=== PATIENT | male | born 1995 | race Caucasian/White ===

== ENCOUNTER 2018-02-03 21:38 | Emergency (ER) | payer MEDICAID, OTHER ==
[~2018-02-03] VITALS: Ht 172.7 cm; Wt 95.5 kg
[~2018-02-03 21:38] MED LIST: ACET-2615 PO; LEVO500T2 PO; NO HOME MEDS
[2018-02-03 21:46] VITALS: BP 130/85
[2018-02-03] MEDS ORDERED: dexamethasone sod phosphate 10mg/ml inj IM STA (23:39)
[2018-02-03] MEDS ORDERED: HYDROcodone/acetaminophen 10/325mg tab PO ONE (23:40)
[2018-02-03] MEDS ORDERED: orphenadrine citrate 60mg/2ml inj. IM ONE (23:40)
[2018-02-03] MEDS ORDERED: ketorolac trometh inj. 60 MG/2 ML VIAL IM ONE (23:40)
[2018-02-03] MEDS ORDERED: NAPR-56 PO (23:46)
[2018-02-03] MEDS ORDERED: CYCL-1 PO (23:46)
== END 2018-02-03 23:58 | disposition home or self-care (01) ==
LOC: ER 21:39
DX: G89.29 Other chronic pain (principal); M54.42 Lumbago with sciatica, left side; M62.838 Other muscle spasm
CPT/HCPCS: 96372; 99284; J1100; J1885; J2360

== ENCOUNTER 2019-03-10 12:43 | Emergency (ER) | payer BC, MEDICAID, OTHER ==
[~2019-03-10] VITALS: Ht 172.7 cm; Wt 90.9 kg
[~2019-03-10 12:43] MED LIST changes: +CYCL-1 PO
--- NOTE | 2019-03-10 13:09 | NUR ---
PT REPORTS ABD PAIN THAT STARTED AT 5 AM PROGRESSIVELY GETTING WORSE AND THEN STARTED VOMITING. NO HX.
[2019-03-10] MEDS ORDERED: ondansetron/PF 4mg/2ml inj IV ONE (13:40)
[2019-03-10] MEDS ORDERED: pantoprazole 40 MG vial IV ONE (13:40)
[2019-03-10] MEDS ORDERED: normal saline 1000ML IV soln IVB ONE ×2 (13:40)
[2019-03-10 14:11] LABS: BASOPHILS # (AUTO) 0.1 X10'3 (0-0.2); BASOPHILS % (AUTO) 0.8 % (0-1); EOSINOPHILS # (AUTO) 0.2 X10'3 (0-0.9); EOSINOPHILS % (AUTO) 2.7 % (0-6); HEMOGLOBIN 15.6 g/dl (14.0-17.9); LYMPHOCYTES # (AUTO) 1.8 X10'3 (1.1-4.8); MEAN CORPUSCULAR HGB CONC 33.9 g/dL (33.0-36.5); MEAN CORPUSCULAR VOLUME 91.5 FL (78-98); MEAN PLATELET VOLUME 8.7 FL (7.4-10.4); MONOCYTES # (AUTO) 0.5 X10'3 (0-0.9); MONOCYTES % (AUTO) 7.3 % (2-12); NEUTROPHILS # (AUTO) 4.1 X10'3 (1.8-7.7); NEUTROPHILS % (AUTO) 62.2 % (42-75); PLATELET COUNT 247 X10'3 (140-440); RED BLOOD COUNT 5.03 X10'6 (4.70-6.10); RED CELL DISTRIBUTION WIDTH 13.9 % (11.5-14.5); WHITE BLOOD COUNT 6.5 X10'3 (4.5-11.0)
[2019-03-10 14:24] LABS: ALANINE AMINOTRANSFERASE 38 U/L (12-78); ALBUMIN 3.8 G/DL (3.4-5.0); ALKALINE PHOSPHATASE 60 IU/L (46-116); ANION GAP 9 (8-16); ASPARTATE AMINO TRANSFERASE 22 U/L (10-37); BILIRUBIN,TOTAL 0.3 MG/DL (0.1-1.0); BLOOD UREA NITROGEN 16 MG/DL (7-18); BUN/CREATININE RATIO 17.6 (5.4-32.0); CALCIUM 8.8 MG/DL (8.5-10.1); CHLORIDE 108 MMOL/L (99-107); CREATININE 0.91 MG/DL (0.60-1.10); GLUCOSE 103 MG/DL (70-104); LIPASE 110 U/L (73-393); POTASSIUM 4.3 MMOL/L (3.5-5.1); SODIUM 143 MMOL/L (135-145); TOTAL CARBON DIOXIDE 26.4 MMOL/L (24-32); TOTAL PROTEIN 7.5 G/DL (6.4-8.2); eGFR > 90 ML/MIN
[2019-03-10] MEDS ORDERED: HYDROcodone/acetaminophen 10/325mg tab PO ONE (14:35)
[2019-03-10] MEDS ORDERED: PANT-47 PO (15:01)
[2019-03-10] MEDS ORDERED: ONDA8TAB13 PO (15:01)
[2019-03-10 15:02] VITALS: BP 130/72
== END 2019-03-10 15:08 | disposition home or self-care (01) ==
LOC: ER 12:44
DX: R11.11 Vomiting without nausea (principal); R10.12 Left upper quadrant pain; R10.13 Epigastric pain; E86.0 Dehydration; G89.29 Other chronic pain; F17.200 Nicotine dependence, unspecified, uncomplicated; Z90.49 Acquired absence of other specified parts of digestive tract
CPT/HCPCS: 36415; 74018; 80053; 83690; 85025; 96361; 96374; 96375; 99284; C9113; J2405; J7030; J7040

== ENCOUNTER 2022-08-08 20:19 | Emergency (ER) | payer BC ==
[~2022-08-08] VITALS: Ht 175.3 cm; Wt 106.8 kg
[~2022-08-08 20:19] MED LIST changes: -ACET-2615 PO; -CYCL-1 PO; -LEVO500T2 PO; +ONDA8TAB13 PO; +PANT-47 PO
[2022-08-08] MEDS ORDERED: tobramycin/dexamethasone ophthalmic suspension EACHEYE ONE (20:25)
[2022-08-08 20:30] VITALS: BP 158/103
== END 2022-08-08 21:10 | disposition home or self-care (01) ==
LOC: ER 20:20
DX: H10.9 Unspecified conjunctivitis (principal); J06.9 Acute upper respiratory infection, unspecified; Z20.822 Contact with and (suspected) exposure to COVID-19; G89.29 Other chronic pain; Z90.49 Acquired absence of other specified parts of digestive tract; Z79.899 Other long term (current) drug therapy
CPT/HCPCS: 87811; 99283

== ENCOUNTER 2022-12-27 02:55 | Emergency (ER) | payer BC ==
[~2022-12-27] VITALS: Ht 175.3 cm; Wt 105.0 kg
[2022-12-27 02:57] VITALS: BP 174/103
[2022-12-27] MEDS ORDERED: ondansetron 4mg rapidly disintigrating tab PO ONE (04:00)
[2022-12-27] MEDS ORDERED: LIDOcaine 1% W/epiNEPHrine 1:100,000 20ml vial IJ ONE (04:00)
[2022-12-27] MEDS ORDERED: amoxicillin 250mg capsule PO ONE (04:00)
[2022-12-27] MEDS ORDERED: LIDOcaine 1% W/epiNEPHrine 1:200,000 10ml vial IJ ONE (04:00)
[2022-12-27] MEDS ORDERED: HYDR-3965 PO (04:03)
[2022-12-27] MEDS ORDERED: AMOX500C2 PO (04:03)
== END 2022-12-27 04:21 | disposition home or self-care (01) ==
LOC: ER 02:55
DX: K08.89 Other specified disorders of teeth and supporting structures (principal); G89.29 Other chronic pain; Z90.49 Acquired absence of other specified parts of digestive tract; Z79.899 Other long term (current) drug therapy
CPT/HCPCS: 64400; 99284

== ENCOUNTER 2023-06-23 22:38 | Emergency (ER) | payer BC ==
[~2023-06-23] VITALS: Ht 172.7 cm; Wt 109.1 kg
[~2023-06-23 22:38] MED LIST changes: +VANCOMYCIN 750MG IV in NS 250 ML IV ONE
[2023-06-23] MEDS ORDERED: acetaminophen 325mg tablet PO STA (22:41)
[2023-06-23] MEDS ORDERED: normal saline 1000ML IV soln IV ONE (22:45)
[2023-06-23 23:10] LABS: BASOPHILS % (AUTO) 0.4 % (0-1); EOSINOPHILS # (AUTO) 0.1 X10'3 (0-0.9); HEMATOCRIT 44.9 % (42.0-52.0); LYMPHOCYTES # (AUTO) 1.6 X10'3 (1.1-4.8); LYMPHOCYTES % (AUTO) 16.5 % (21-51); MEAN CORPUSCULAR HEMOGLOBIN 30.4 PG (27.0-31.0); MEAN CORPUSCULAR HGB CONC 33.4 g/dL (33.0-36.5); MEAN CORPUSCULAR VOLUME 90.9 FL (78-98); MEAN PLATELET VOLUME 8.6 FL (7.4-10.4); MONOCYTES # (AUTO) 0.7 X10'3 (0-0.9); MONOCYTES % (AUTO) 7.7 % (2-12); NEUTROPHILS # (AUTO) 7.2 X10'3 (1.8-7.7); NEUTROPHILS % (AUTO) 74.4 % (42-75); PLATELET COUNT 238 X10'3 (140-440); RED BLOOD COUNT 4.94 X10'6 (4.70-6.10); RED CELL DISTRIBUTION WIDTH 13.3 % (11.5-14.5); WHITE BLOOD COUNT 9.6 X10'3 (4.5-11.0)
[2023-06-23] MEDS ORDERED: ketorolac trometh. 30mg/ml inj. IV ONE (23:15)
[2023-06-23] MEDS ORDERED: metoclopramide 5 mg/ml inj IV ONE (23:15)
[2023-06-23 23:25] LABS: ALANINE AMINOTRANSFERASE 63 U/L (12-78); ALBUMIN 3.8 G/DL (3.4-5.0); ALBUMIN/GLOBULIN RATIO 0.9 (1.1-1.5); ALKALINE PHOSPHATASE 75 IU/L (46-116); ANION GAP 13 (8-16); ASPARTATE AMINO TRANSFERASE 35 U/L (10-37); BILIRUBIN,TOTAL 0.3 MG/DL (0.1-1.0); BLOOD UREA NITROGEN 9 MG/DL (7-18); BUN/CREATININE RATIO 8.2 (10.0-20.0); CALCIUM 8.9 MG/DL (8.5-10.1); CHLORIDE 103 MMOL/L (99-107); GLUCOSE 111 MG/DL (70-104); MAGNESIUM 1.9 MG/DL (1.5-2.4); POTASSIUM 3.5 MMOL/L (3.5-5.1); SODIUM 142 MMOL/L (135-145); TOTAL PROTEIN 8.1 G/DL (6.4-8.2); eCRCL 98 ML/MIN; eGFR 80 ML/MIN
[2023-06-23] MEDS ORDERED: piperacillin/tazo 3.375gm/50ml 50 ML IV ONE (23:25)
[2023-06-23] MEDS ORDERED: vancomycin/NS 1 GM ADD-VANTAGE 250 ML IV ONE (23:25)
[2023-06-24 00:43] LABS: BILIRUBIN,URINE NEGATIVE (Neg); CLARITY,URINE CLEAR (Clear); COLOR,URINE YELLOW (Yellow); GLUCOSE, URINE NEGATIVE (Neg); KETONES,URINE NEGATIVE (Neg); LEUKOCYTE ESTERASE ,URINE NEGATIVE (Neg); NITRITES, URINE NEGATIVE (Neg); OCCULT BLOOD,URINE NEGATIVE (Neg); PROTEIN,URINE NEGATIVE (Neg)
[2023-06-24 00:47] LABS: UA COLLECTION TYPE URINAL
[2023-06-24] MEDS ORDERED: VANCOMYCIN 750MG IV in NS 250 ML IV ONE (01:30)
[2023-06-24 01:50] VITALS: BP 155/80; PULSE 80; RESP 16; TEMP 98.6; O2SAT 98
== END 2023-06-24 03:20 | disposition home or self-care (01) ==
LOC: ER 22:38
DX: B34.9 Viral infection, unspecified (principal); Z20.822 Contact with and (suspected) exposure to COVID-19
CPT/HCPCS: 36415; 71045; 80053; 81003; 83605; 83735; 84145; 85025; 87040; 87502; 87503; 87811; 93005; 96361; 96365; 96366; 96367; 96375; 99285; J1885; J2543; J2765; J3370; J7030; J7050; A4615

== ENCOUNTER 2023-10-28 21:00 | Emergency (ER) | payer BC ==
[~2023-10-28] VITALS: Ht 172.7 cm; Wt 109.1 kg
[~2023-10-28 21:00] MED LIST changes: -VANCOMYCIN 750MG IV in NS 250 ML IV ONE
[2023-10-28 23:41] VITALS: BP 120/88; PULSE 97; RESP 16; TEMP 98.8; O2SAT 97
== END 2023-10-28 23:46 | disposition home or self-care (01) ==
LOC: ER 21:00
DX: B34.9 Viral infection, unspecified (principal); Z79.899 Other long term (current) drug therapy; Z90.49 Acquired absence of other specified parts of digestive tract
CPT/HCPCS: 99281